=== PATIENT | female | born 1950 | race Caucasian/White ===

== ENCOUNTER 2020-05-24 13:54 | Emergency (ER) | payer MEDICARE, MEDICAID ==
[~2020-05-24] VITALS: Ht 165.1 cm; Wt 49.0 kg
[2020-05-24] MEDS ORDERED: GLUCOPHAGE1000 MG PO (15:18)
[2020-05-24] MEDS ORDERED: FARXIGA10 MG PO (15:19)
[2020-05-24] MEDS ORDERED: CILOSTAZOL 100100 MG PO (15:19)
[2020-05-24] MEDS ORDERED: PANTOPRAZOLE SO40 M3 PO (15:20)
[2020-05-24] MEDS ORDERED: BREO ELLIPTA 11 EACH INH (15:21)
[2020-05-24] MEDS ORDERED: SIMVASTATIN40 MG PO (15:21)
[2020-05-24] MEDS ORDERED: TRULICITY0.75 MG/0. SUBQ (15:21)
[2020-05-24] MEDS ORDERED: MYRBETRIQ50 MG PO (15:22)
[2020-05-24 15:53] LABS: ABSOLUTE BASOPHILS 0.1 thou/uL (0.0-0.2); ABSOLUTE EOSINOPHILS 0.1 thou/uL (0.0-0.7); ABSOLUTE LYMPHOCYTES 1.7 thou/uL (0.8-5.3); ABSOLUTE MONOCYTES 0.9 thou/uL (0.0-1.2); ABSOLUTE NEUTROPHILS 7.6 thou/uL (1.6-8.1); BASOPHILS 0.8 %; EOSINOPHILS 0.6 %; HEMATOCRIT 38.5 % (37.0-47.0); HEMOGLOBIN 13.1 gm/dL (12.0-15.0); LYMPHOCYTES 16.7 %; MCV 85.4 fL (80.0-100.0); MONOCYTES 8.7 %; MPV 9.2 fl. (7.2-11.1); NUCLEATED RBCS 0 /100WBC; PLATELET COUNT* 360 thou/uL (150-400); POLYS 73.2 %; RBC 4.51 mil/uL (4.20-5.00); RDW-CV 15.1 % (10.5-14.5); WBC 10.4 thou/uL (4.0-11.0)
[2020-05-24 16:05] LABS: APTT 29.6 Seconds (25.0-31.3); PROTIME 10.6 Seconds (9.20-11.50)
[2020-05-24 16:07] LABS: ALBUMIN 3.3 g/dL (3.4-5.0); CREATININE 0.6 mg/dL (0.6-1.3); TOTAL BILIRUBIN 0.5 mg/dL (<0.1-1.0); TOTAL PROTEIN 6.9 g/dL (6.4-8.2)
[2020-05-24 16:10] LABS: POTASSIUM 2.6 mmol/L (3.5-5.1)
[2020-05-24 18:40] LABS: URINE BILIRUBIN NEGATIVE (Negative); URINE BLOOD NEGATIVE (Negative); URINE CLARITY CLEAR; URINE COLOR YELLOW; URINE GLUCOSE-RANDOM 2+ (Negative); URINE KETONES 1+ (Negative); URINE LEUKOCYTES-REFLEX NEGATIVE (Negative); URINE NITRITE-REFLEX NEGATIVE (Negative); URINE PROTEIN 1+ (Negative); URINE SPECIFIC GRAVITY >= 1.030 (1.005-1.030); URINE UROBILINOGEN 0.2 E.U./dl (0.2-1.0)
[2020-05-24] MEDS ORDERED: ZOFRAN ODT4 MG PO (18:57)
[2020-05-24] MEDS ORDERED: HYDROCODON-ACE1 EAC7 PO (18:57)
[2020-05-24 19:12] VITALS: BP 167/76
--- NOTE | 2020-05-25 10:13 | EKG ---
[place] [address] ELECTROCARDIOGRAM REPORT Name: WINNIE STARKS Room: [facility]#: [id number] Admission: 05/24/20 Attend Phys: Discharge: 05/24/20 Date of : 52 Date of Service: 05/24/20 1536 Report #: [id number] THIS REPORT FOR: //name// [facility] ED Test Date: 2020-05-24 Test Time: 15:36:33 Pat Name: WINNIE STARKS Department: Room: Gender: F Chief Commercial Officer: : 1950 Requested By: Myra De Los Santos Order Number: [id number] MD: Michael Boone Measurements Intervals [place] Rate: 91 P: 78 [place]: 138 QRS: 39 QRSD: 96 T: 75 QT: 368 QTc: 453 Interpretive Statements Sinus rhythm Probable left atrial enlargement Repol abnrm suggests ischemia, diffuse leads No previous ECG available for comparison Electronically Signed On 05-25-2020 10:13:46 CDT by Michael Boone [email or web address] <ELECTRONICALLY SIGNED> By: Michael Boone MD, [facility] 05/25/20 1013 1536 153 Michael Boone MD, [facility] /EPI
== END 2020-05-24 19:13 | disposition home or self-care (01) ==
LOC: M.ERS 13:54
PROVIDERS: Personal Emergency Response Attendant
DX: S22.080A Wedge compression fracture of T11-T12 vertebra, initial encounter for closed fracture (principal); E11.9 Type 2 diabetes mellitus without complications; E78.5 Hyperlipidemia, unspecified; K21.9 Gastro-esophageal reflux disease without esophagitis; Z79.899 Other long term (current) drug therapy; Z88.0 Allergy status to penicillin; Z88.2 Allergy status to sulfonamides; Z72.0 Tobacco use; X58.XXXA Exposure to other specified factors, initial encounter; Y93.89 Activity, other specified; Y92.89 Other specified places as the place of occurrence of the external cause; Y99.8 Other external cause status

== ENCOUNTER 2020-10-11 12:06 | Inpatient (IN) | payer MEDICARE, MEDICAID ==
[~2020-10-11] VITALS: Ht 165.1 cm; Wt 46.3 kg
--- NOTE | ~2020-10-11 | CON ---
[address] [address] CONSULTATION Name: RAUDELWINNIE Danyell Room: [address] IN .R.#: [id number] Admission: 10/11/20 Attend Phys: Audrey Wolf MD Discharge: Date of : 52 Report #: [id number] THIS REPORT FOR: cc: Pippa Ceron Linda J. DO ~ Lisandro Doe MD DATE OF SERVICE: 10/14/2020 REQUESTING PHYSICIAN: Audrey Wolf MD REASON FOR CONSULTATION: Anemia. HISTORY OF PRESENT ILLNESS: The patient is a 70-year-old woman, extremely poor historian, who was admitted to the hospital with abdominal pain, was found to have anemia and I am consulted for anemia. She had surgery done at [facility]. It appears that she had an abdominal-associated bowel obstruction, volvulus, had a hemicolectomy. She is doing okay. She does not report blood in stool. She says her stools are "very hard." Denies nausea, vomiting, fevers. PAST MEDICAL HISTORY: Significant for peripheral vascular disease; the patient does not have any knowledge about this, bowel obstruction, COPD, diabetes mellitus. The patient states that she has a history of iron deficiency anemia. Does not remember when. FAMILY HISTORY: Noncontributory. PHYSICAL EXAMINATION: GENERAL: Chronically ill-appearing woman, not in acute distress. VITAL SIGNS: Blood pressure 110/60, heart rate 81, temperature 98.0. LUNGS: Clear. There is no supraclavicular or axial lymphadenopathy. ABDOMEN: Bandage in place. Abdomen appears somewhat distended. EXTREMITIES: Lower extremities: No edema. MENTAL STATUS: Alert, but somewhat confused. LABORATORY DATA: White count 8.8, hemoglobin 8.1, platelets are 330, MCV is 70.5. Sodium 142, potassium 3.5, BUN 8, creatinine 0.6. CT abdomen shows bilateral iliac stents, compression fracture at L4. ASSESSMENT AND PLAN: Microcytic anemia suggestive of iron deficiency. The patient is taking oral iron, although she does not have a knowledge if she has been taking oral iron as an outpatient. Recommend check B12, folate, ferritin to documented iron deficiency. [place] [address] CONSULTATION Name: WINNIE STARKS Room: [address] IN [facility]#: [id number] Admission: 10/11/20 Attend Phys: Audrey Wolf MD Discharge: Date of : 52 Report #: [id number] Thank you very much for allowing us to participate in care of this patient. We will follow the patient with you. By: [id number] [id number] Doe MD /nt
[~2020-10-11 12:06] MED LIST: ASA81BEC PO; BREO ELLIPTA 11 EACH INH; CILOSTAZOL 100100 M1 PO; CILOSTAZOL 100100 MG PO; DIAZEPAM 5 MG5 MG PO; FARXIGA10 MG PO; GLUCOPHAGE1000 MG PO; HYDROCODON-ACE1 EAC7 PO; LORCET 5-325 M1 EACH PO; METFORMIN HCL500 M3 PO; MYRBETRIQ50 MG PO; PANTOPRAZOLE SO40 M3 PO; PLAVIX 75 MG TA75 MG PO; PROTONIX40 M2 PO; SIMVASTATIN40 MG PO; SIMVASTATIN80 MG PO; TRULICITY0.75 MG/0. INJECTION; TRULICITY0.75 MG/0. SUBQ; TYLENOL EXTRA500 MG PO; ZOFRAN ODT4 MG PO
[2020-10-11 12:18] VITALS: BP 112/59
[2020-10-11] MEDS ORDERED: VITCB500GO PO (12:26)
[2020-10-11] MEDS ORDERED: IRON GLYCINATE29 MG PO (12:27)
[2020-10-11] MEDS ORDERED: DAILY MULTIPLE1 EACH PO (12:27)
[2020-10-11] MEDS ORDERED: BREO ELLIPTA 11 EACH INH (12:28)
[2020-10-11 12:31] LABS: HEMATOCRIT 24.9 % (37.0-47.0); HEMOGLOBIN 7.1 gm/dL (12.0-15.0); MCH 18.9 pg (26.0-34.0); MCHC 28.7 g/dL (28.0-37.0); MCV 65.9 fL (80.0-100.0); MPV 9.1 fl. (7.2-11.1); NUCLEATED RBCS 0 /100WBC; PLATELET COUNT* 397 thou/uL (150-400); RBC 3.77 mil/uL (4.20-5.00); RDW-CV 23.3 % (10.5-14.5); WBC 14.3 thou/uL (4.0-11.0)
[2020-10-11 12:40] LABS: CALCIUM 8.6 mg/dL (8.5-10.1); CREATININE 0.7 mg/dL (0.6-1.3)
[2020-10-11 12:44] LABS: ALBUMIN 3.3 g/dL (3.4-5.0); APTT 27.6 Seconds (25.0-31.3); PROTIME 10.9 Seconds (9.20-11.50); TOTAL BILIRUBIN 0.5 mg/dL (<0.1-1.0); TOTAL PROTEIN 6.9 g/dL (6.4-8.2)
[2020-10-11 13:05] LABS: ABSOLUTE LYMPHOCYTES 0.6 thou/uL (0.8-5.3); ABSOLUTE MONOCYTES 0.7 thou/uL (0.0-1.2); PLATELET ESTIMATE ADEQUATE
[2020-10-11 13:06] LABS: ANISOCYTOSIS 2+; HYPOCHROMASIA 2+; MICROCYTES 2+; OVALOCYTES 2+; POIKILOCYTOSIS 2+; POLYCHROMASIA Occasional
[2020-10-11 13:38] LABS: URINE BILIRUBIN NEGATIVE (Negative); URINE BLOOD NEGATIVE (Negative); URINE CLARITY CLEAR; URINE COLOR YELLOW; URINE GLUCOSE-RANDOM 3+ (Negative); URINE KETONES NEGATIVE (Negative); URINE LEUKOCYTES-REFLEX NEGATIVE (Negative); URINE NITRITE-REFLEX NEGATIVE (Negative); URINE PROTEIN NEGATIVE (Negative); URINE UROBILINOGEN 0.2 E.U./dl (0.2-1.0)
[2020-10-11 16:54] VITALS: BP 102/57
[2020-10-11 17:15] VITALS: BP 97/55
[2020-10-11 19:50] VITALS: BP 95/55
[2020-10-11 21:39] LABS: HEMATOCRIT 24.4 % (37.0-47.0); HEMOGLOBIN 7.1 gm/dL (12.0-15.0)
[2020-10-12 01:12] VITALS: BP 95/55; BP 97/57; BP 98/56
[2020-10-12 01:16] VITALS: BP 107/58; BP 95/55; BP 98/56
[2020-10-12 05:49] LABS: HEMATOCRIT 27.4 % (37.0-47.0); HEMOGLOBIN 8.2 gm/dL (12.0-15.0); MCH 21.1 pg (26.0-34.0); MCV 70.4 fL (80.0-100.0); MPV 9.3 fl. (7.2-11.1); RBC 3.9 mil/uL (4.20-5.00); RDW-CV 23.1 % (10.5-14.5); WBC 13.2 thou/uL (4.0-11.0)
[2020-10-12 06:05] LABS: ALBUMIN 2.8 g/dL (3.4-5.0); CREATININE 0.6 mg/dL (0.6-1.3); MAGNESIUM 1.6 mg/dL (1.8-2.4); POTASSIUM 3.9 mmol/L (3.5-5.1); TOTAL BILIRUBIN 0.9 mg/dL (<0.1-1.0); TOTAL PROTEIN 5.9 g/dL (6.4-8.2)
[2020-10-12 08:05] VITALS: BP 100/58
[2020-10-12 14:45] VITALS: BP 101/63
[2020-10-12 19:30] VITALS: BP 126/73
[2020-10-12 19:35] VITALS: BP 126/73
[2020-10-13 04:32] LABS: HEMATOCRIT 27.6 % (37.0-47.0); HEMOGLOBIN 8.1 gm/dL (12.0-15.0); MCHC 29.6 g/dL (28.0-37.0); MPV 9.2 fl. (7.2-11.1); RBC 3.88 mil/uL (4.20-5.00); RDW-CV 22.9 % (10.5-14.5); WBC 13.9 thou/uL (4.0-11.0)
[2020-10-13 05:16] LABS: CALCIUM 7.9 mg/dL (8.5-10.1); CREATININE 0.5 mg/dL (0.6-1.3); POTASSIUM 3.5 mmol/L (3.5-5.1)
[2020-10-13 07:45] VITALS: BP 116/76
--- NOTE | 2020-10-13 14:07 | 2DMMODE ---
[place] [address] 2 D/M-MODE ECHOCARDIOGRAM Name: WINNIE STARKS Room: [address] IN [facility]#: [id number] Admission: 10/11/20 Attend Phys: Audrey Wolf, Discharge: Date of : 52 Date of Service: 10/13/20 1406 Report #: [id number] THIS REPORT FOR: cc: Pippa Ceron Linda J. DO Liston, Michael J. MD [facility] ~ APPROVED REPORT Study performed: 10/13/2020 10:05:54 EXAM: Comprehensive 2D, Doppler, and color-flow Echocardiogram Patient Location: In-Patient Room #: [facility] Status: routine BSA: 1.49 HR: 88 bpm BP: 126/73 mmHg Rhythm: NSR Other Information Study Quality: Good Indications Murmur 2D Dimensions IVSd: 11.69 (7-11mm) LVOT Diam: 19.94 (18-24mm) LVDd: 47.59 mm PWd: 10.37 (7-11mm) LVDs: 38.52 (25-40mm) Aortic Root: 29.99 mm Volumes Left Atrial Volume (Systole) LA ESV Index: 44.20 mL/m2 Aortic Valve AoV Peak Yoshi.: 3.82 m/s AO Peak Gr.: 58.35 mmHg LVOT Max P.27 mmHg AO Mean Gr.: 34.88 mmHg LVOT Mean P.68 mmHg LVOT Max V: 0.90 m/s AO V2 VTI: 73.86 cm LVOT Mean V: 0.60 m/s [place] (VTI): 0.81 cm2 LVOT V1 VTI: 19.06 [place] [address] 2 D/M-MODE ECHOCARDIOGRAM Name: WINNIE STARKS Room: [address] IN .R.#: [id number] Admission: 10/11/20 Attend Phys: Audrey Wolf, Discharge: Date of : 52 Date of Service: 10/13/20 1406 Report #: [id number] Mitral Valve MV Mean Gr.: 4.32 mmHg E/A Ratio: 0.79 MV Decel. Time: 200.98 ms MV E Max Yoshi.: 1.00 m/s MV PHT: 58.28 ms MVA (PHT): 3.77 cm2 TDI E/Lateral E': 14.29 E/Medial E': 20.00 Medial E' Yoshi.: 0.05 m/s Lateral E' Yoshi.: 0.07 m/s Pulmonary Valve PV Peak Yoshi.: 1.12 m/s PV Peak Gr.: 5.06 mmHg Tricuspid Valve RAP Estimate: 5.00 mmHg TR Peak Gr.: 31.88 mmHg RVSP: 36.00 mmHg PA Pressure: 36.00 mmHg Left Ventricle The left ventricle is normal size. There is mild global hypokinesis. There is normal left ventricular wall thickness. Left ventricular systolic function is mildly decreased. LVEF is 45-50%. Grade I - abnormal relaxation pattern. Right Ventricle The right ventricle is normal size. The right ventricular systolic function is normal. Atria Left atrium is mildly dilated. The right atrium size is normal. Aortic Valve Severe aortic valve sclerosis. No aortic regurgitation is present. Severe aortic stenosis. Mitral Valve There is mitral annular calcification. Mild mitral regurgitation. No evidence of mitral valve stenosis. Tricuspid Valve The tricuspid valve is normal in structure. Mild tricuspid regurgitation. Mild pulmonary hypertension. The RVSP is 35-[place] [address] 2 D/M-MODE ECHOCARDIOGRAM Name: RAUDELWINNIE Danyell Room: [address]#: [id number] Admission: 10/11/20 Attend Phys: Audrey Wolf, Discharge: Date of : 52 Date of Service: 10/13/20 1406 Report #: [id number] Pulmonic Valve The pulmonary valve is normal in structure. There is no pulmonic valvular regurgitation. Great Vessels The aortic root is normal in size. IVC is normal in size and collapses >50% with inspiration. Pericardium There is no pericardial effusion. <Conclusion> The left ventricle is normal size. There is normal left ventricular wall thickness. Left ventricular systolic function is mildly decreased. LVEF is 45-50%. Grade I - abnormal relaxation pattern. There is mild global hypokinesis. Left atrium is mildly dilated. Severe aortic valve sclerosis. Severe aortic stenosis. Mild mitral regurgitation. Mild tricuspid regurgitation. Mild pulmonary hypertension. The RVSP is 35-40 mmHg. IVC is normal in size and collapses >50% with inspiration. <ELECTRONICALLY SIGNED> By: Duane Sauceda MD, FACC 10/13/20 1406 1406 1406 Duane Sauceda MD, FACC /INF
[2020-10-13 16:00] VITALS: BP 103/60
[2020-10-13 20:51] VITALS: BP 110/60
[2020-10-14 05:27] LABS: ABSOLUTE BASOPHILS 0.1 thou/uL (0.0-0.2); ABSOLUTE EOSINOPHILS 0.2 thou/uL (0.0-0.7); ABSOLUTE LYMPHOCYTES 0.8 thou/uL (0.8-5.3); ABSOLUTE MONOCYTES 0.7 thou/uL (0.0-1.2); BASOPHILS 0.6 %; EOSINOPHILS 2.6 %; HEMATOCRIT 26.5 % (37.0-47.0); HEMOGLOBIN 8.1 gm/dL (12.0-15.0); LYMPHOCYTES 9.4 %; MCH 21.6 pg (26.0-34.0); MCHC 30.5 g/dL (28.0-37.0); MCV 70.9 fL (80.0-100.0); MPV 9.4 fl. (7.2-11.1); NUCLEATED RBCS 0 /100WBC; PLATELET COUNT* 330 thou/uL (150-400); POLYS 79.4 %; RBC 3.73 mil/uL (4.20-5.00); RDW-CV 23.8 % (10.5-14.5); WBC 8.8 thou/uL (4.0-11.0)
[2020-10-14 05:37] LABS: CALCIUM 8.2 mg/dL (8.5-10.1); CREATININE 0.6 mg/dL (0.6-1.3); POTASSIUM 3.5 mmol/L (3.5-5.1)
[2020-10-14 07:32] LABS: PLATELET ESTIMATE ADEQUATE
[2020-10-14 07:35] LABS: ANISOCYTOSIS 2+; HYPOCHROMASIA 2+; MICROCYTES 2+; POIKILOCYTOSIS 1+
[2020-10-14 08:30] VITALS: BP 112/64
[2020-10-14 16:24] VITALS: BP 122/67
[2020-10-14 21:55] VITALS: BP 134/79
[2020-10-15 07:55] VITALS: BP 118/69
[2020-10-15] MEDS ORDERED: VIBRAMYCIN 100100 M2 PO (09:49)
[2020-10-15 11:07] LABS: HEMATOCRIT 28.4 % (37.0-47.0); HEMOGLOBIN 8.5 gm/dL (12.0-15.0); MCH 21.1 pg (26.0-34.0); MCHC 29.7 g/dL (28.0-37.0); MCV 70.9 fL (80.0-100.0); MPV 9.6 fl. (7.2-11.1); RBC 4.01 mil/uL (4.20-5.00); RDW-CV 24.6 % (10.5-14.5); WBC 7.9 thou/uL (4.0-11.0)
[2020-10-15 11:08] LABS: CALCIUM 8.5 mg/dL (8.5-10.1); CREATININE 0.5 mg/dL (0.6-1.3); POTASSIUM 3.3 mmol/L (3.5-5.1)
[2020-10-15 12:14] VITALS: BP 134/79
[2020-10-15 14:52] VITALS: BP 134/79
[2020-10-15 16:00] VITALS: BP 103/63
== END 2020-10-15 19:30 | disposition home health service (06) | DRG 862 ==
LOC: M.ERS 12:06 → M.3W 15:02 → M.TBA-ER 15:02 → M.3W 16:35
PROVIDERS: Internal Medicine; Nurse Practitioner Family; Surgery; ADMIT Internal Medicine; ATTEND Internal Medicine
DX: K68.11 Postprocedural retroperitoneal abscess (principal); A41.9 Sepsis, unspecified organism; L03.311 Cellulitis of abdominal wall; E44.0 Moderate protein-calorie malnutrition; M96.89 Other intraoperative and postprocedural complications and disorders of the musculoskeletal system; Z68.1 Body mass index [BMI] 19.9 or less, adult; M48.56XA Collapsed vertebra, not elsewhere classified, lumbar region, initial encounter for fracture; D62 Acute posthemorrhagic anemia; E78.5 Hyperlipidemia, unspecified; E11.51 Type 2 diabetes mellitus with diabetic peripheral angiopathy without gangrene; K21.9 Gastro-esophageal reflux disease without esophagitis; J44.9 Chronic obstructive pulmonary disease, unspecified; G30.9 Alzheimer's disease, unspecified; F02.80 Dementia in other diseases classified elsewhere, unspecified severity, without behavioral disturbance, psychotic disturbance, mood disturbance, and anxiety; D50.9 Iron deficiency anemia, unspecified; F20.9 Schizophrenia, unspecified; I25.10 Atherosclerotic heart disease of native coronary artery without angina pectoris; Y83.8 Other surgical procedures as the cause of abnormal reaction of the patient, or of later complication, without mention of misadventure at the time of the procedure; Y73.8 Miscellaneous gastroenterology and urology devices associated with adverse incidents, not elsewhere classified; E11.65 Type 2 diabetes mellitus with hyperglycemia; Z96.651 Presence of right artificial knee joint; Z20.822 Contact with and (suspected) exposure to COVID-19; Z90.710 Acquired absence of both cervix and uterus; Z79.82 Long term (current) use of aspirin; Z79.899 Other long term (current) drug therapy; Z79.84 Long term (current) use of oral hypoglycemic drugs; Z79.01 Long term (current) use of anticoagulants; Z88.0 Allergy status to penicillin; Z88.2 Allergy status to sulfonamides; Z90.49 Acquired absence of other specified parts of digestive tract; Z87.891 Personal history of nicotine dependence; Y92.89 Other specified places as the place of occurrence of the external cause